=== PATIENT | male | born 1960 | race Caucasian/White ===

== ENCOUNTER 2017-10-16 13:37 | Observation (INO) | payer MEDICARE, OTHER ==
[2017-10-16 14:29] LABS: ADD MAN DIFF? NO
[2017-10-16 14:32] LABS: BASOPHIL # 0.1 10^3/ul (0.0-0.1); BASOPHILS % 0.7 % (0.0-2.0); EOSINOPHILS # 0.2 10^3/ul (0.0-0.5); EOSINOPHILS % 1.8 % (0.0-7.0); HEMATOCRIT 45.4 % (42.0-52.0); HEMOGLOBIN 15.5 g/dl (14.0-18.0); LYMPHOCYTES # 3.1 10^3/ul (0.8-2.9); LYMPHOCYTES % 36.4 % (15.0-51.0); MEAN CORPUSCULAR HEMOGLOBIN 30.7 pg (29.0-33.0); MEAN CORPUSCULAR HGB CONC 34.1 g/dl (32.0-37.0); MEAN CORPUSCULAR VOLUME 89.9 fl (82.0-101.0); MEAN PLATELET VOLUME 9.9 fl (7.4-10.4); MONOCYTE # 0.7 10^3/ul (0.3-0.9); MONOCYTES % 7.8 % (0.0-11.0); NEUTROPHIL # 4.4 10^3/ul (1.6-7.5); NEUTROPHILS % 53.1 % (39.0-77.0); PLATELET COUNT 282 10^3/UL (140-415); RED BLOOD COUNT 5.05 10^6/ul (4.70-6.10); RED CELL DISTRIBUTION WIDTH 12.2 % (11.5-14.5)
[2017-10-16 14:32] LABS: WHITE BLOOD COUNT 8.4 10^3/ul (4.8-10.8)
[2017-10-16] MEDS: ASPIRIN 81 MG TAB PO (14:32)
[2017-10-16] MEDS: NITROGLYCERIN 2% 1 GM OINT PKT TD (14:32)
[2017-10-16] MEDS: NITROGLYCERIN (SL) 0.4 MG TAB SL (14:33)
[2017-10-16] MEDS: ACETAMINOPHEN 325 MG TAB PO (14:49)
[2017-10-16 14:53] LABS: ANION GAP 18 (8-16); BLOOD UREA NITROGEN 25 mg/dl (7-20); CALCIUM 9.5 mg/dl (8.4-10.2); CARBON DIOXIDE 25 mmol/L (21-31); CHLORIDE 106 mmol/L (97-110); CREATININE 0.79 mg/dl (0.61-1.24); GLUCOSE 144 mg/dl (70-220); SODIUM 145 mmol/L (135-144)
[2017-10-16 15:12] LABS: TROPONIN-I < 0.012 ng/ml (0.000-0.120)
[2017-10-16] MEDS ORDERED: ACETAMINOPHEN 325 MG TAB PO (16:00)
[2017-10-16] MEDS ORDERED: ONDANSETRON 4 MG INJ IV (16:00)
[2017-10-16] MEDS: INSULIN ASPART [NOVOLOG] 3 ML PEN SC ×4 (17:18→20:39)
[2017-10-16] MEDS: metFORMIN 500 MG TAB PO (17:28)
[2017-10-16] MEDS ORDERED: DEXTROSE 50% 50 ML SYRINGE IV ×2 (17:30)
[2017-10-16] MEDS ORDERED: GLUCOSE GEL 15 GRAM TUBE BUCCAL (17:30)
[2017-10-16] MEDS ORDERED: GLUCAGON 1 MG INJ IM (17:30)
[2017-10-16] MEDS ORDERED: NACL 0.9% 3 ML SYG IV (17:30)
[2017-10-16] MEDS ORDERED: HYDROCODONE/APAP (5/325) TAB PO (17:30)
[2017-10-16] MEDS ORDERED: GLUCOSE GEL 15 GRAM TUBE PO ×2 (17:30)
[2017-10-16] MEDS: FAMOTIDINE 20 MG TAB PO (20:27)
[2017-10-16] MEDS: traZODone 50 MG TAB PO (20:28)
[2017-10-16] MEDS: INSULIN GLARGINE [LANtus] 3 ML PEN SC (20:31)
[2017-10-16 20:36] LABS: CREATINE KINASE 139 IU/L (23-200)
[2017-10-16 20:49] LABS: CK INDEX 1.1; CK-MB 1.54 ng/ml (0.0-2.4); TROPONIN-I < 0.012 ng/ml (0.000-0.120)
[2017-10-17] MEDS: ACCU-CHEK XX (02:00)
[2017-10-17 02:46] LABS: ADD MAN DIFF? NO
[2017-10-17 02:52] LABS: BASOPHIL # 0.1 10^3/ul (0.0-0.1); BASOPHILS % 0.5 % (0.0-2.0); EOSINOPHILS # 0.2 10^3/ul (0.0-0.5); EOSINOPHILS % 2.2 % (0.0-7.0); HEMOGLOBIN 13.7 g/dl (14.0-18.0); LYMPHOCYTES # 3.9 10^3/ul (0.8-2.9); LYMPHOCYTES % 42.6 % (15.0-51.0); MEAN CORPUSCULAR HEMOGLOBIN 30.6 pg (29.0-33.0); MEAN CORPUSCULAR HGB CONC 34.3 g/dl (32.0-37.0); MEAN CORPUSCULAR VOLUME 89.3 fl (82.0-101.0); MEAN PLATELET VOLUME 9.8 fl (7.4-10.4); MONOCYTE # 0.5 10^3/ul (0.3-0.9); MONOCYTES % 5.9 % (0.0-11.0); NEUTROPHIL # 4.5 10^3/ul (1.6-7.5); NEUTROPHILS % 48.6 % (39.0-77.0); PLATELET COUNT 245 10^3/UL (140-415); RED BLOOD COUNT 4.48 10^6/ul (4.70-6.10); RED CELL DISTRIBUTION WIDTH 12.3 % (11.5-14.5)
[2017-10-17 02:52] LABS: WHITE BLOOD COUNT 9.2 10^3/ul (4.8-10.8)
[2017-10-17 03:19] LABS: ALANINE AMINOTRANSFERASE 55 IU/L (13-69); ALBUMIN 3.6 g/dl (3.3-4.9); ALBUMIN/GLOBULIN RATIO 1.28; ALKALINE PHOSPHATASE 65 IU/L (42-121); ANION GAP 11 (8-16); ASPARTATE AMINO TRANSFERASE 34 IU/L (15-46); BILIRUBIN,INDIRECT 0.3 mg/dl (0-1.1); BILIRUBIN,TOTAL 0.3 mg/dl (0.2-1.3); BLOOD UREA NITROGEN 24 mg/dl (7-20); CARBON DIOXIDE 27 mmol/L (21-31); CHLORIDE 107 mmol/L (97-110); CREATINE KINASE 145 IU/L (23-200); CREATININE 0.82 mg/dl (0.61-1.24); GLUCOSE 163 mg/dl (70-220); POTASSIUM 3.8 mmol/L (3.5-5.1); SODIUM 141 mmol/L (135-144); TOTAL PROTEIN 6.4 g/dl (6.1-8.1)
[2017-10-17 03:25] LABS: HEMOGLOBIN A1C 10.2 % (0-5.9)
[2017-10-17 03:29] LABS: CK INDEX 0.9
[2017-10-17 03:30] LABS: CK-MB 1.37 ng/ml (0.0-2.4); TROPONIN-I < 0.012 ng/ml (0.000-0.120)
[2017-10-17] MEDS: METOPROLOL 25 MG TAB PO (08:09)
[2017-10-17] MEDS: TAMSULOSIN (SR) 0.4 MG CAP PO (08:09)
[2017-10-17] MEDS: FAMOTIDINE 20 MG TAB PO ×2 (08:09→20:19)
[2017-10-17] MEDS: LISINOPRIL 5 MG TAB PO (08:09)
[2017-10-17] MEDS: CLOPIDOGREL 75 MG TAB PO (08:09)
[2017-10-17] MEDS: metFORMIN 500 MG TAB PO ×2 (08:09→17:10)
[2017-10-17] MEDS: DULOXETINE 30 MG CAP DR PO (08:10)
[2017-10-17] MEDS: ASPIRIN (EC) 81 MG TAB PO (08:10)
[2017-10-17] MEDS: INSULIN ASPART [NOVOLOG] 3 ML PEN SC ×7 (08:12→20:20)
[2017-10-17] MEDS: SOD CHLORIDE 0.9% 500 ML IV (14:14)
[2017-10-17] MEDS: traZODone 50 MG TAB PO (20:19)
[2017-10-17] MEDS: INSULIN GLARGINE [LANtus] 3 ML PEN SC (20:19)
[2017-10-18] MEDS: ACCU-CHEK XX (02:00)
[2017-10-18 07:16] LABS: CHOLESTEROL 111 mg/dl (100-200)
[2017-10-18 07:16] LABS: CHOL/HDL RATIO 3.3 RATIO; HDL CHOLESTEROL 33 mg/dl (28-71); LDL CHOLESTEROL,CALCULATED 47 mg/dl; TRIGLYCERIDES 156 mg/dl (0-149)
[2017-10-18] MEDS: metFORMIN 500 MG TAB PO ×2 (08:00→17:34)
[2017-10-18] MEDS: INSULIN ASPART [NOVOLOG] 3 ML PEN SC ×6 (08:27→17:33)
[2017-10-18] MEDS: FAMOTIDINE 20 MG TAB PO (08:30)
[2017-10-18] MEDS: TAMSULOSIN (SR) 0.4 MG CAP PO (08:30)
[2017-10-18] MEDS: ASPIRIN (EC) 81 MG TAB PO (08:30)
[2017-10-18] MEDS: CLOPIDOGREL 75 MG TAB PO (08:30)
[2017-10-18] MEDS: DULOXETINE 30 MG CAP DR PO (08:31)
[2017-10-18] MEDS: METOPROLOL (XL) 25 MG TAB PO (08:34)
[2017-10-18] MEDS: LISINOPRIL 5 MG TAB PO (08:35)
[2017-10-18] MEDS: REGADENOSON 0.4 MG/5 ML SYG (12:05)
[2017-10-25] MEDS ORDERED: MIDAZOLAM 1 MG/ML 2 ML INJ (16:17)
[2017-10-25] MEDS ORDERED: PROPOFOL 20 ML (16:17)
[2017-10-25] MEDS ORDERED: FENTAnyl 50 MCG/ML VIAL (16:17)
[2017-10-25] MEDS ORDERED: ONDANSETRON 4 MG INJ (16:17)
== END 2017-10-18 17:35 | disposition home or self-care (01) ==
LOC: MS4 10-17 22:05 → E/R 13:37 → MS4 10-17 22:05
DX: R07.9 Chest pain, unspecified (principal); I10 Essential (primary) hypertension; E11.9 Type 2 diabetes mellitus without complications; I25.10 Atherosclerotic heart disease of native coronary artery without angina pectoris; Z95.5 Presence of coronary angioplasty implant and graft; Z95.1 Presence of aortocoronary bypass graft; N40.0 Benign prostatic hyperplasia without lower urinary tract symptoms; F17.200 Nicotine dependence, unspecified, uncomplicated; Z79.82 Long term (current) use of aspirin; Z79.4 Long term (current) use of insulin; Z79.02 Long term (current) use of antithrombotics/antiplatelets
CPT/HCPCS: 36415; 71045; 78452; 80048; 80053; 80061; 82550; 82553; 82962; 83036; 84484; 85025; 93005; 93017; 93306; 99285-25; G0378

== ENCOUNTER 2018-07-05 03:53 | Observation (INO) | payer MEDICARE, OTHER ==
[2018-07-05 04:54] LABS: ADD MAN DIFF? NO
[2018-07-05] MEDS: ONDANSETRON 4 MG INJ IV (04:54)
[2018-07-05] MEDS: NITROGLYCERIN (SL) 0.4 MG TAB SL (04:54)
[2018-07-05 04:55] LABS: WHITE BLOOD COUNT 10.6 10^3/ul (4.8-10.8)
[2018-07-05 04:55] LABS: BASOPHIL # 0.1 10^3/ul (0.0-0.1); BASOPHILS % 0.6 % (0.0-2.0); EOSINOPHILS # 0.1 10^3/ul (0.0-0.5); EOSINOPHILS % 0.8 % (0.0-7.0); LYMPHOCYTES % 18.7 % (15.0-51.0); MEAN CORPUSCULAR HEMOGLOBIN 30.8 pg (29.0-33.0); MEAN CORPUSCULAR VOLUME 88.1 fl (82.0-101.0); MEAN PLATELET VOLUME 9.9 fl (7.4-10.4); MONOCYTE # 0.6 10^3/ul (0.3-0.9); MONOCYTES % 5.6 % (0.0-11.0); NEUTROPHIL # 7.8 10^3/ul (1.6-7.5); NEUTROPHILS % 73.8 % (39.0-77.0); PLATELET COUNT 257 10^3/UL (140-415); RED BLOOD COUNT 4.54 10^6/ul (4.70-6.10); RED CELL DISTRIBUTION WIDTH 11.7 % (11.5-14.5)
[2018-07-05 05:13] LABS: ANION GAP 13 (5-13); BLOOD UREA NITROGEN 17 mg/dl (7-20); CALCIUM 9.7 mg/dl (8.4-10.2); CARBON DIOXIDE 25 mmol/L (21-31); CHLORIDE 101 mmol/L (97-110); CREATININE 0.84 mg/dl (0.61-1.24); Estimated GFR > 60 mL/min (>60); GLUCOSE 260 mg/dl (70-220); POTASSIUM 4.4 mmol/L (3.5-5.1); SODIUM 139 mmol/L (135-144)
[2018-07-05 05:25] LABS: TROPONIN-I 0.031 ng/ml (0.000-0.120)
[2018-07-05] MEDS: ASPIRIN 81 MG TAB PO (05:32)
[2018-07-05] MEDS ORDERED: ACETAMINOPHEN 325 MG TAB PO ×2 (06:00)
[2018-07-05] MEDS ORDERED: HYDROCODONE/APAP (5/325) TAB PO (06:00)
[2018-07-05] MEDS ORDERED: NITROGLYCERIN (SL) 0.4 MG TAB SL (06:00)
[2018-07-05] MEDS ORDERED: ONDANSETRON 4 MG INJ IV ×2 (06:00)
[2018-07-05] MEDS ORDERED: NACL 0.9% 3 ML SYG IV (06:00)
[2018-07-05] MEDS ORDERED: morphine 2 MG INJ IV (06:00)
[2018-07-05] MEDS ORDERED: INSULIN ASPART [NOVOLOG] 3 ML PEN SC (06:30)
[2018-07-05] MEDS ORDERED: NON-FORMULARY/PATIENT OWN MED (Exenatide Microspheres (Bydureon) 2 MG) SQ (08:30)
[2018-07-05] MEDS: Insulin NOVOLOG SS MILD Algorithm (NPO/TPN/ENTERAL FEEDS) SC (08:44)
[2018-07-05] MEDS: DEXTROSE 5%-0.45% NACL 1,000 ML IV ×3 (08:45→22:00)
[2018-07-05] MEDS ORDERED: METOPROLOL 25 MG TAB PO (09:00)
[2018-07-05] MEDS ORDERED: ASPIRIN 81 MG TAB PO (09:00)
[2018-07-05] MEDS: INSULIN ASPART [NOVOLOG] 3 ML PEN SC ×4 (09:30→21:19)
[2018-07-05] MEDS: FISH OIL 1,000 MG CAP PO ×2 (09:51→21:13)
[2018-07-05] MEDS: DULOXETINE 30 MG CAP DR PO (09:51)
[2018-07-05] MEDS: FINASTERIDE 5 MG TAB PO (09:51)
[2018-07-05] MEDS: TICAGRELOR 90 MG TABLET PO ×2 (09:51→21:19)
[2018-07-05] MEDS: PANTOPRAZOLE (EC) 40 MG TAB PO (09:51)
[2018-07-05] MEDS: FAMOTIDINE 20 MG TAB PO ×2 (09:51→21:15)
[2018-07-05] MEDS ORDERED: GLUCAGON 1 MG INJ IM (10:00)
[2018-07-05] MEDS ORDERED: DEXTROSE 50% 50 ML SYRINGE IV ×2 (10:00)
[2018-07-05] MEDS: ACCU-CHEK XX ×7 (10:00→21:00)
[2018-07-05] MEDS ORDERED: GLUCOSE GEL 15 GRAM TUBE BUCCAL (10:00)
[2018-07-05] MEDS ORDERED: GLUCOSE GEL 15 GRAM TUBE PO ×2 (10:00)
[2018-07-05] MEDS: METOPROLOL 25 MG TAB PO ×2 (10:13→21:15)
[2018-07-05] MEDS: LISINOPRIL 5 MG TAB PO (10:20)
[2018-07-05 13:24] LABS: CREATINE KINASE 117 IU/L (23-200)
[2018-07-05 13:37] LABS: CK INDEX 1.2; CK-MB 1.46 ng/ml (0.0-2.4); TROPONIN-I 0.026 ng/ml (0.000-0.120)
[2018-07-05] MEDS: metFORMIN 500 MG TAB PO (17:52)
[2018-07-05 19:07] LABS: CREATINE KINASE 97 IU/L (23-200)
[2018-07-05 19:18] LABS: CK INDEX 1.4; CK-MB 1.39 ng/ml (0.0-2.4); TROPONIN-I 0.022 ng/ml (0.000-0.120)
[2018-07-05] MEDS: TAMSULOSIN (SR) 0.4 MG CAP PO (21:14)
[2018-07-05] MEDS: traZODone 50 MG TAB PO (21:15)
[2018-07-05] MEDS: INSULIN GLARGINE [LANTus] (100 UNITS/ML) SYG SC (21:29)
[2018-07-06] MEDS ORDERED: ACCU-CHEK XX (02:00)
[2018-07-06] MEDS: ACCU-CHEK XX ×8 (02:00→21:02)
[2018-07-06 06:56] LABS: HEMOGLOBIN A1C 8.9 % (0-5.9)
[2018-07-06] MEDS: INSULIN ASPART [NOVOLOG] 3 ML PEN SC ×4 (07:55→21:00)
[2018-07-06] MEDS: PANTOPRAZOLE (EC) 40 MG TAB PO (08:53)
[2018-07-06] MEDS: FINASTERIDE 5 MG TAB PO (08:53)
[2018-07-06] MEDS: FISH OIL 1,000 MG CAP PO ×2 (08:53→20:59)
[2018-07-06] MEDS: ASPIRIN 81 MG TAB PO (08:53)
[2018-07-06] MEDS: DULOXETINE 30 MG CAP DR PO (08:54)
[2018-07-06] MEDS: EMPAGLIFLOZIN 10 MG TABLET PO (08:54)
[2018-07-06] MEDS: metFORMIN 500 MG TAB PO ×2 (08:57→17:33)
[2018-07-06] MEDS: METOPROLOL 25 MG TAB PO ×2 (09:00→21:01)
[2018-07-06] MEDS: LISINOPRIL 5 MG TAB PO (09:00)
[2018-07-06] MEDS: TICAGRELOR 90 MG TABLET PO ×2 (09:00→21:05)
[2018-07-06] MEDS: FAMOTIDINE 20 MG TAB PO ×2 (09:02→21:06)
[2018-07-06] MEDS: DEXTROSE 5%-0.45% NACL 1,000 ML IV (17:36)
[2018-07-06] MEDS: traZODone 50 MG TAB PO (20:59)
[2018-07-06] MEDS: TAMSULOSIN (SR) 0.4 MG CAP PO (21:00)
[2018-07-06] MEDS: INSULIN GLARGINE [LANTus] (100 UNITS/ML) SYG SC (21:05)
[2018-07-07] MEDS: DEXTROSE 5%-0.45% NACL 1,000 ML IV (00:52)
[2018-07-07] MEDS: ACCU-CHEK XX ×4 (00:55→11:20)
[2018-07-07] MEDS: INSULIN ASPART [NOVOLOG] 3 ML PEN SC (07:55)
[2018-07-07] MEDS: EMPAGLIFLOZIN 10 MG TABLET PO (08:15)
[2018-07-07] MEDS: metFORMIN 500 MG TAB PO (08:54)
[2018-07-07] MEDS: DULOXETINE 30 MG CAP DR PO (09:25)
[2018-07-07] MEDS: PANTOPRAZOLE (EC) 40 MG TAB PO (09:25)
[2018-07-07] MEDS: FINASTERIDE 5 MG TAB PO (09:25)
[2018-07-07] MEDS: ASPIRIN 81 MG TAB PO (09:25)
[2018-07-07] MEDS: FISH OIL 1,000 MG CAP PO (09:26)
[2018-07-07] MEDS: METOPROLOL 25 MG TAB PO (09:26)
[2018-07-07] MEDS: LISINOPRIL 5 MG TAB PO (09:27)
[2018-07-07] MEDS: TICAGRELOR 90 MG TABLET PO (09:30)
[2018-07-07] MEDS: FAMOTIDINE 20 MG TAB PO (14:07)
[2018-07-07] MEDS ORDERED: EXENATIDE MICROSPHERES 2 MG XX (14:30)
[2018-07-07] MEDS ORDERED: [UNRECOGNIZED DRUG - OTHER] XX (14:30)
== END 2018-07-07 16:03 | disposition home or self-care (01) ==
LOC: TEL 07-06 21:14 → E/R 03:53 → TEL 05:54
DX: R07.89 Other chest pain (principal); I25.10 Atherosclerotic heart disease of native coronary artery without angina pectoris; Z95.1 Presence of aortocoronary bypass graft; Z95.5 Presence of coronary angioplasty implant and graft; I11.0 Hypertensive heart disease with heart failure; I50.22 Chronic systolic (congestive) heart failure; E11.9 Type 2 diabetes mellitus without complications; Z79.4 Long term (current) use of insulin; I25.5 Ischemic cardiomyopathy; E78.2 Mixed hyperlipidemia
CPT/HCPCS: 36415; 71045; 80048; 82550; 82553; 82962; 83036; 84484; 85025; 93005; 93306; 96374; 99285-25; G0378

== ENCOUNTER 2018-07-10 23:54 | Observation (INO) | payer MEDICARE, OTHER ==
[2018-07-11] MEDS: ONDANSETRON 4 MG INJ IV (00:23)
[2018-07-11] MEDS: morphine 4 MG/ML VIAL IV (00:23)
[2018-07-11] MEDS: NITROGLYCERIN 2% 1 GM OINT PKT TD (00:24)
[2018-07-11 00:29] LABS: ADD MAN DIFF? NO
[2018-07-11 00:30] LABS: BASOPHILS % 0.4 % (0.0-2.0); EOSINOPHILS # 0.2 10^3/ul (0.0-0.5); EOSINOPHILS % 2.3 % (0.0-7.0); HEMATOCRIT 39.5 % (42.0-52.0); HEMOGLOBIN 13.7 g/dl (14.0-18.0); LYMPHOCYTES # 2.7 10^3/ul (0.8-2.9); LYMPHOCYTES % 30.6 % (15.0-51.0); MEAN CORPUSCULAR HEMOGLOBIN 30.5 pg (29.0-33.0); MEAN CORPUSCULAR HGB CONC 34.7 g/dl (32.0-37.0); MONOCYTE # 0.6 10^3/ul (0.3-0.9); MONOCYTES % 6.9 % (0.0-11.0); NEUTROPHIL # 5.3 10^3/ul (1.6-7.5); NEUTROPHILS % 59.4 % (39.0-77.0); PLATELET COUNT 324 10^3/UL (140-415); RED BLOOD COUNT 4.49 10^6/ul (4.70-6.10); RED CELL DISTRIBUTION WIDTH 11.9 % (11.5-14.5)
[2018-07-11 00:48] LABS: ANION GAP 15 (5-13); BLOOD UREA NITROGEN 21 mg/dl (7-20); CALCIUM 9.7 mg/dl (8.4-10.2); CARBON DIOXIDE 21 mmol/L (21-31); CHLORIDE 103 mmol/L (97-110); CREATININE 0.79 mg/dl (0.61-1.24); Estimated GFR > 60 mL/min (>60); GLUCOSE 159 mg/dl (70-220); SODIUM 139 mmol/L (135-144)
[2018-07-11 01:00] LABS: TROPONIN-I < 0.012 ng/ml (0.000-0.120)
[2018-07-11] MEDS ORDERED: ONDANSETRON 4 MG INJ IV (01:30)
[2018-07-11] MEDS ORDERED: ACETAMINOPHEN 325 MG TAB PO (01:30)
[2018-07-11] MEDS ORDERED: LORAZEPAM 1 MG TAB PO (04:00)
[2018-07-11] MEDS ORDERED: NON-FORMULARY/PATIENT OWN MED (Exenatide Microspheres (Bydureon) 2 MG) SQ (04:00)
[2018-07-11] MEDS ORDERED: EVOLOCUMAB 140 MG SQ (04:00)
[2018-07-11] MEDS ORDERED: NITROGLYCERIN (SL) 0.4 MG TAB SL (04:00)
[2018-07-11] MEDS ORDERED: DEXTROSE 50% 50 ML SYRINGE IV ×2 (04:30)
[2018-07-11] MEDS ORDERED: GLUCAGON 1 MG INJ IM (04:30)
[2018-07-11] MEDS ORDERED: GLUCOSE GEL 15 GRAM TUBE PO ×2 (04:30)
[2018-07-11] MEDS ORDERED: GLUCOSE GEL 15 GRAM TUBE BUCCAL (04:30)
[2018-07-11] MEDS: PANTOPRAZOLE (EC) 40 MG TAB PO (05:16)
[2018-07-11 06:56] LABS: CREATINE KINASE 62 IU/L (23-200)
[2018-07-11] MEDS: ACCU-CHEK XX ×3 (06:56→17:15)
[2018-07-11] MEDS ORDERED: ACCU-CHEK XX ×2 (07:00)
[2018-07-11 07:10] LABS: CK INDEX 2.8; CK-MB 1.71 ng/ml (0.0-2.4); TROPONIN-I < 0.012 ng/ml (0.000-0.120)
[2018-07-11] MEDS: INSULIN ASPART [NOVOLOG] 3 ML PEN SC ×3 (08:00→17:15)
[2018-07-11] MEDS: ASPIRIN (EC) 81 MG TAB PO (08:38)
[2018-07-11] MEDS: DULOXETINE 30 MG CAP DR PO (08:38)
[2018-07-11] MEDS: metFORMIN 500 MG TAB PO ×2 (08:40→17:15)
[2018-07-11] MEDS: TAMSULOSIN (SR) 0.4 MG CAP PO (08:40)
[2018-07-11] MEDS: GLIMEPIRIDE 4 MG TAB PO ×2 (08:40→17:15)
[2018-07-11] MEDS: LISINOPRIL 5 MG TAB PO (08:41)
[2018-07-11] MEDS: METOPROLOL 25 MG TAB PO (08:41)
[2018-07-11] MEDS: FAMOTIDINE 20 MG TAB PO (08:41)
[2018-07-11] MEDS: TICAGRELOR 90 MG TABLET PO (08:52)
[2018-07-11 10:13] LABS: CREATINE KINASE 56 IU/L (23-200)
[2018-07-11 10:25] LABS: CK INDEX 3.1; CK-MB 1.76 ng/ml (0.0-2.4); TROPONIN-I < 0.012 ng/ml (0.000-0.120)
[2018-07-11] MEDS: METOCLOPRAMIDE 5 MG TAB PO (12:07)
[2018-07-11 15:29] LABS: CREATINE KINASE 60 IU/L (23-200)
[2018-07-11 15:49] LABS: CK INDEX 3.3; CK-MB 1.95 ng/ml (0.0-2.4); TROPONIN-I < 0.012 ng/ml (0.000-0.120)
[2018-07-11] MEDS ORDERED: traZODone 50 MG TAB PO (21:00)
== END 2018-07-11 19:10 | disposition home health service (06) ==
LOC: E/R 23:54 → 6WM 07-11 01:28
DX: R07.9 Chest pain, unspecified (principal); I25.10 Atherosclerotic heart disease of native coronary artery without angina pectoris; Z95.5 Presence of coronary angioplasty implant and graft; Z95.1 Presence of aortocoronary bypass graft; I10 Essential (primary) hypertension; E78.5 Hyperlipidemia, unspecified; F32.9 Major depressive disorder, single episode, unspecified; E11.9 Type 2 diabetes mellitus without complications; M19.90 Unspecified osteoarthritis, unspecified site; K29.70 Gastritis, unspecified, without bleeding; Z79.4 Long term (current) use of insulin; Z79.82 Long term (current) use of aspirin; Z87.891 Personal history of nicotine dependence
CPT/HCPCS: 71045; 80048; 82550; 82553; 82962; 84484; 85025; 87081; 93005; G0378